=== PATIENT | male | born 1965 | race Caucasian/White ===

== ENCOUNTER 2018-12-08 22:41 | Emergency (ER) | payer SELFPAY ==
[~2018-12-08] VITALS: Ht 170.2 cm; Wt 93.2 kg
[2018-12-08 22:50] VITALS: TEMP 96.9
[2018-12-08 23:26] LABS: HEMATOCRIT 47.4 % (42.0-52.0); HEMOGLOBIN 15.6 g/dl (13.5-18.0); MEAN CELL VOLUME 90 fl (80.0-100.0); MEAN CORPUSCULAR HEMOGLOBIN 30 pg (27.0-31.0); MEAN CORPUSCULAR HGB CONC 33 g/dl (33.0-37.0); MEAN PLATELET VOLUME 9.6 fl (7.4-10.4); PLATELET COUNT 225 K/mm3 (130-400); RED BLOOD COUNT 5.27 M/mm3 (4.20-5.60); REDCELL DISTRIBUTION WIDTH-CV 13.6 % (11.5-14.5)
[2018-12-08] MEDS ORDERED: NOVOLOG 100U100 U/M1 (23:29)
[2018-12-08] MEDS ORDERED: LIPITOR 10MG10 MG (23:30)
[2018-12-08] MEDS ORDERED: PRINIVIL5 MG (23:30)
[2018-12-08] MEDS ORDERED: LEVEMIR100 U/ML (23:30)
[2018-12-08] MEDS ORDERED: RIOMET500 MG/5 M (23:30)
[2018-12-08] MEDS ORDERED: FENOGLIDE40 MG (23:31)
[2018-12-08 23:38] LABS: ALANINE AMINOTRANSFERASE 30 U/L (21-72); ALBUMIN 3.8 gm/dL (3.5-5.0); ALKALINE PHOSPHATASE 51 U/L (50-136); ANION GAP 10 mmol/L (7-16); AST,SGOT 22 U/L (15-37); BILIRUBIN,TOTAL 0.4 mg/dL (0.0-1.0); BLOOD UREA NITROGEN 24 mg/dL (9-20); CALCIUM 8.8 mg/dL (8.4-10.2); CARBON DIOXIDE 26 mmol/L (22-30); CHLORIDE 106 mmol/L (98-107); CREATINE KINASE 65 U/L (55-170); CREATININE, serum 0.95 (0.66-1.25); GLUCOSE 214 mg/dL (74-106); SODIUM 142 mmol/L (137-145); TOTAL PROTEIN 6.4 gm/dL (6.4-8.2)
[2018-12-08 23:50] LABS: TROPONIN-I < 0.012 ng/mL (0.000-0.035)
[2018-12-09 00:21] VITALS: BP 131/75; PULSE 87
[2018-12-09 00:24] LABS: BAND 32 % (0-10); BASOPHIL 1 % (0-2); EOSINOPHIL 1 % (0-4); LYMPHOCYTE 18 % (20.0-51.0); NEUTROPHILS 43 % (42.0-75.2)
[2018-12-09 00:25] LABS: HYPOCHROMIA 1+
== END 2018-12-09 00:21 | disposition home or self-care (01) ==
LOC: COL.ER 22:41
PROVIDERS: Emergency Medicine
DX: R55 Syncope and collapse (principal); E11.9 Type 2 diabetes mellitus without complications; I10 Essential (primary) hypertension; E78.5 Hyperlipidemia, unspecified; F17.210 Nicotine dependence, cigarettes, uncomplicated; Z79.4 Long term (current) use of insulin; Z79.84 Long term (current) use of oral hypoglycemic drugs; Z87.19 Personal history of other diseases of the digestive system
CPT/HCPCS: J7030